=== PATIENT | male | born 1945 | race Caucasian/White ===

== ENCOUNTER 2022-09-07 06:00 | Outpatient (RCR) | payer OTHER, SELFPAY | END 2022-09-21 23:59 | disposition home or self-care (01) | LOC: GPT 06:00 | PROVIDERS: Visit Provider Registered Nurse | DX: G95.9 Disease of spinal cord, unspecified (principal); M50.321 Other cervical disc degeneration at C4-C5 level; M50.30 Other cervical disc degeneration, unspecified cervical region; Z98.1 Arthrodesis status | CPT/HCPCS: 97110; 97140; 97162 ==

== ENCOUNTER 2022-09-22 06:00 | Outpatient (RCR) | payer OTHER, SELFPAY | END 2022-10-19 23:59 | disposition home or self-care (01) | LOC: GPT 06:00 | PROVIDERS: Visit Provider Registered Nurse | DX: G95.9 Disease of spinal cord, unspecified (principal); M50.321 Other cervical disc degeneration at C4-C5 level; M50.30 Other cervical disc degeneration, unspecified cervical region; Z98.1 Arthrodesis status | CPT/HCPCS: 97110; 97112; 97140 ==

== ENCOUNTER 2022-10-20 06:00 | Outpatient (RCR) | payer OTHER, SELFPAY | END 2022-11-19 23:59 | disposition home or self-care (01) | LOC: GPT 06:00 | PROVIDERS: Visit Provider Registered Nurse | DX: G95.9 Disease of spinal cord, unspecified (principal); M50.321 Other cervical disc degeneration at C4-C5 level; M50.30 Other cervical disc degeneration, unspecified cervical region; Z98.1 Arthrodesis status | CPT/HCPCS: 97110; 97112; 97140; 97164; 97530; 97535 ==

== ENCOUNTER → 2023-06-27 10:09 | Outpatient (BNVA) | payer OTHER, SELFPAY | PROVIDERS: PCP Family Medicine; Visit Provider Podiatrist Foot & Ankle Surgery | DX: B35.1 Tinea unguium (principal); I73.9 Peripheral vascular disease, unspecified; G62.9 Polyneuropathy, unspecified | CPT/HCPCS: 11721; 99203 ==

== ENCOUNTER → 2023-09-19 10:05 | Outpatient (BNVA) | payer OTHER, SELFPAY | PROVIDERS: PCP Family Medicine; Visit Provider Podiatrist Foot & Ankle Surgery | DX: B35.1 Tinea unguium (principal); I73.9 Peripheral vascular disease, unspecified; G62.9 Polyneuropathy, unspecified | CPT/HCPCS: 11721 ==

== ENCOUNTER → 2023-09-21 08:34 | Outpatient (BNVA) | payer OTHER, SELFPAY | PROVIDERS: PCP Family Medicine; Referring Provider Family Medicine; Visit Provider Internal Medicine Pulmonary Disease | DX: J96.11 Chronic respiratory failure with hypoxia (principal); J43.2 Centrilobular emphysema; I48.91 Unspecified atrial fibrillation; Z12.2 Encounter for screening for malignant neoplasm of respiratory organs; G47.33 Obstructive sleep apnea (adult) (pediatric); Z87.891 Personal history of nicotine dependence | CPT/HCPCS: 99204 ==

== ENCOUNTER 2023-10-12 09:42 | Outpatient (CLI) | payer OTHER, SELFPAY ==
[2023-10-12 10:05] VITALS: PULSE 82; RESP 18; O2SAT 98
[2023-10-12] MEDS: albuterol 2.5 mg/3 mL Neb INHALATION (10:05)
[2023-10-12 10:09] VITALS: PULSE 85
== END 2023-10-12 09:43 | disposition home or self-care (01) ==
LOC: RT 09:42
PROVIDERS: PCP Family Medicine; Visit Provider Internal Medicine Pulmonary Disease
DX: R06.02 Shortness of breath (principal); R06.00 Dyspnea, unspecified; R05.9 Cough, unspecified; R06.2 Wheezing
CPT/HCPCS: 36415; 80053; 83880; 85025; 94060; 94618; 94726; 94729; J7613

== ENCOUNTER 2023-10-17 09:35 | Outpatient (CLI) | payer OTHER, SELFPAY ==
--- NOTE | 2023-10-17 10:00 | CT_ITS ---
WS: [id number] LDCT LUNG CANCER SCREENING HISTORY: cancer screening TECHNIQUE: Axial imaging performed from the apices to 1 cm below the costophrenic angles. Coronal and sagittal reformats are submitted with axial MIP series. All CT scans at [facility] use at least one of these dose optimization techniques: automated exposure control; mA and/or kV adjustment per patient size (includes targeted exams where dose is matched to clinical indication); or iterativ e reconstruction. DLP: 166.49 mGy.cm DIvol: Mean CTDIvol: 3.90 (mGy) COMPARISON: None available. Diagnostic quality: Satisfactory Lungs: Lung volumes are decreased due to poor inspiration. Crowding of the lung markings at the lung bases and medially. Nodularity surrounded by atelectasis medially in the RIGHT lower lobes. Nodule me asuring 8 mm needs to be further evaluated. No mass. No endobronchial lesions. Heart: Mild cardiomegaly.. Other findings: No pericardial or pleural effusions. Small benign mediastinal and hilar lymph nodes. There is a cystic mass associated with the RIGHT shoulder joint. This is probably a cyst associated w ith internal derangement or labral tear. Cyst is incompletely visualized but measures 2.3 x 5.2 cm. I rregular soft tissue mass in the subareolar location RIGHT breast measures 2.9 x 2.6 cm. IMPRESSION: CT/CT lung screening [id number] LUNG-RADS: 4A-Probably Suspicious FOLLOW UP: 3 Month LDCT OTHER FINDINGS (S MODIFIER): None.
== END 2023-10-17 09:36 | disposition home or self-care (01) ==
LOC: RAD 09:37
PROVIDERS: PCP Family Medicine; Visit Provider Internal Medicine Pulmonary Disease
DX: Z12.2 Encounter for screening for malignant neoplasm of respiratory organs (principal); Z87.891 Personal history of nicotine dependence; R91.1 Solitary pulmonary nodule; J98.11 Atelectasis
CPT/HCPCS: 71271

== ENCOUNTER 2023-11-18 13:22 | Outpatient (CLI) | payer OTHER, SELFPAY ==
--- NOTE | 2023-11-18 14:00 | CT_ITS ---
WS: [id number] Exam: CT chest althea cantor [id number] Date/Time of Exam: 11/18/2023 1:56 PM Reason For Exam: 3 month f/u 8 mm nodule DLP: 754.[address] scans at [facility] use at least one of these dose optimization techniques: automated e xposure control; mA and/or kV adjustment per patient size (includes targeted exams where dose is matc hed to clinical indication); or iterative reconstruction. Comparison 10/17/2023. Nodular pleural thickening again noted medially in the RIGHT lower lobe is stable in appearance. No o ther pulmonary nodules are noted. The lungs are fully expanded and clear. No significant mediastinal or hilar lymphadenopathy noted. The thoracic aorta is normal in caliber. No pleural or pericardial ef fusion identified. Small hiatal hernia. No destructive bone lesions are seen. The chest wall is intac t. Again noted is a soft tissue mass in the RIGHT subareolar area which is unchanged. Again noted is a cystic mass involving the RIGHT shoulder which is unchanged in appearance. IMPRESSION: 1. 8 mm nodular pleural thickening along the medial aspect of the RIGHT lower lobe unchanged in appea shobha. Follow-up CT in 8 to 12 months is recommended for surveillance. 2. No significant lymphadenopathy in the chest. 3. RIGHT breast mass. Further work-up with bilateral mammography recommended. Ultrasound may also be necessary.
== END 2023-11-18 13:23 | disposition home or self-care (01) ==
LOC: RAD 13:24
PROVIDERS: PCP Family Medicine; Visit Provider Internal Medicine Pulmonary Disease
DX: R91.1 Solitary pulmonary nodule (principal); N63.41 Unspecified lump in right breast, subareolar
CPT/HCPCS: 71250

== ENCOUNTER → 2023-11-22 14:44 | Outpatient (BNVA) | payer OTHER, SELFPAY | PROVIDERS: PCP Family Medicine; Visit Provider Internal Medicine Pulmonary Disease | DX: J43.2 Centrilobular emphysema (principal); J96.11 Chronic respiratory failure with hypoxia; I48.91 Unspecified atrial fibrillation; Z12.2 Encounter for screening for malignant neoplasm of respiratory organs; G47.33 Obstructive sleep apnea (adult) (pediatric); N63.0 Unspecified lump in unspecified breast | CPT/HCPCS: 99214 ==

== ENCOUNTER → 2023-11-30 10:20 | Outpatient (BNVA) | payer OTHER, SELFPAY | PROVIDERS: PCP Family Medicine; Visit Provider Podiatrist Foot & Ankle Surgery | DX: B35.1 Tinea unguium (principal); I73.9 Peripheral vascular disease, unspecified; G62.9 Polyneuropathy, unspecified | CPT/HCPCS: 11721 ==

== ENCOUNTER 2024-01-24 09:49 | Outpatient (CLI) | payer OTHER, SELFPAY ==
--- NOTE | 2024-01-24 09:58 | MM_ITS ---
WS: [id number] DIAGNOSTIC BILATERAL DIGITAL BREAST TOMOSYNTHESIS MAMMOGRAPHY WITH CAD RIGHT breast ultrasound, limited HISTORY: LUMP IN R BREAST COMPARISON: 11/18/2023 and 10/17/2023 TECHNIQUE: Bilateral craniocaudad, mediolateral oblique, and mediolateral views are submitted with to mosynthesis and SM. Spot compression RIGHT MLO and CC. Computer aided detection utilized. Breast composition: There are scattered areas of fibroglandular density. Flamelike density posterior to the RIGHT nipple is most consistent with gynecomastia. The area of concern measures 2.5 x 2.4 cm and corresponds to the recent chest CT. No suspicious calcifications. RIGHT breast ultrasound, limited. Hypoechoic dendritic like mass posterior to the RIGHT nipple corresponds to the mammographic and CT f indings. This mass measures 1.4 x 1.3 cm and without increased vascularity. No similar findings on th e LEFT. MM/[place] [id number] IMPRESSION: BI-RADS: 2-Benign FOLLOW UP: See Report Mammographic abnormality corresponds to the CT findings that have been previous ly described. Most consistent with gynecomastia.
== END 2024-01-24 09:50 | disposition home or self-care (01) ==
LOC: RAD 09:49
PROVIDERS: PCP Family Medicine; Visit Provider Family Medicine
DX: N63.41 Unspecified lump in right breast, subareolar (principal)
CPT/HCPCS: 76642; 77062; G0279

== ENCOUNTER → 2024-02-17 09:42 | Outpatient (BNVA) | payer OTHER, SELFPAY | PROVIDERS: PCP Family Medicine; Visit Provider Podiatrist Foot & Ankle Surgery | DX: B35.1 Tinea unguium (principal); I73.9 Peripheral vascular disease, unspecified; G62.9 Polyneuropathy, unspecified | CPT/HCPCS: 11721 ==

== ENCOUNTER 2024-04-13 09:04 | Outpatient (CLI) | payer OTHER, SELFPAY ==
--- NOTE | 2024-04-13 09:10 | CT_ITS ---
WS: [id number] CT chest wo con [id number] HISTORY: FOLLOW UP NODULE TECHNIQUE: Axial imaging performed through the thorax. Coronal and sagittal reformats are submitted. All CT scans at [facility] use at least one of these dose optimization techniques: automated exposure control; mA and/or kV adjustment per patient size (includes targeted exams where dose is mat ched to clinical indication); or iterative reconstruction. CONTRAST: None DLP: 707.12 mGy.cm COMPARISON: 10/17/2023, 11/18/2023 Lungs and central airway: Low lung volumes and dependent changes at the lung bases. Previously descri bed pleural nodule along the medial RIGHT lower lung has essentially resolved. There is a small amoun t of residual scarring but the nodule has resolved. No pneumonia. No additional mass or nodules are i dentified. Pleura: Normal. No pleural effusion. Heart and pericardium: Mild cardiomegaly. Mediastinum and evelyn: Numerous but small mediastinal and hilar lymph nodes. No pathological lymph nod es. Vessels: Mild atherosclerosis aorta. No aneurysm. Pulmonary artery size is equal to the aorta. Chest wall and lower neck: Bilateral gynecomastia, RIGHT greater than LEFT. Bilateral cystic masses a ssociated with the glenohumeral joints. Upper abdomen: Hepatic steatosis. The visualized gallbladder is negative. No adrenal mass. 1.3 cm exo phytic hypodensity from the LEFT kidney. Osseous structures: Advanced thoracic spondylosis. CT/CT chest wo con [id number] IMPRESSION: 1. Previously described pleural-based nodule along the medial RIGHT lower lobe has resolved. No residual mass. Return to annual screening lung exams. 2. Mild emphysema with chronic scarring posteriorly. 3. No mediastinal or hilar adenopathy identified. 4. Mild gynecomastia. 5. Hepatic steatosis.
== END 2024-04-13 09:05 | disposition home or self-care (01) ==
LOC: RAD 09:05
PROVIDERS: PCP Family Medicine; Visit Provider Family Medicine
DX: E86.9 Volume depletion, unspecified (principal); M71.319 Other bursal cyst, unspecified shoulder; K76.0 Fatty (change of) liver, not elsewhere classified; R93.422 Abnormal radiologic findings on diagnostic imaging of left kidney; M47.814 Spondylosis without myelopathy or radiculopathy, thoracic region
CPT/HCPCS: 71250

== ENCOUNTER → 2024-04-27 09:35 | Outpatient (BNVA) | payer OTHER, SELFPAY | PROVIDERS: PCP Family Medicine; Visit Provider Podiatrist Foot & Ankle Surgery | DX: B35.1 Tinea unguium (principal); I73.9 Peripheral vascular disease, unspecified; G62.9 Polyneuropathy, unspecified | CPT/HCPCS: 11721 ==

== ENCOUNTER → 2024-07-18 10:15 | Outpatient (BNVA) | payer OTHER, SELFPAY | PROVIDERS: PCP Family Medicine; Visit Provider Podiatrist Foot & Ankle Surgery | DX: B35.1 Tinea unguium (principal); I73.9 Peripheral vascular disease, unspecified; G62.9 Polyneuropathy, unspecified | CPT/HCPCS: 11721 ==

== ENCOUNTER → 2024-10-09 09:09 | Outpatient (BNVA) | payer OTHER, SELFPAY | PROVIDERS: PCP Family Medicine; Visit Provider Podiatrist Foot & Ankle Surgery | DX: I73.9 Peripheral vascular disease, unspecified (principal); B35.1 Tinea unguium; G62.9 Polyneuropathy, unspecified | CPT/HCPCS: 11721 ==

== ENCOUNTER → 2024-12-11 09:52 | Outpatient (BNVA) | payer OTHER, SELFPAY | PROVIDERS: PCP Family Medicine; Visit Provider Podiatrist Foot & Ankle Surgery | DX: I73.9 Peripheral vascular disease, unspecified (principal); B35.1 Tinea unguium; G62.9 Polyneuropathy, unspecified | CPT/HCPCS: 11721 ==

== ENCOUNTER 2024-12-31 11:42 | Outpatient (CLI) | payer OTHER, SELFPAY ==
[2024-12-31 13:06] LABS: Anion Gap 16.5 (5-19); Blood Urea Nitrogen 34 mg/dL (8-23); Calcium 9.3 mg/dL (8.5-10.5); Carbon Dioxide 28 mmol/L (22-29); Chloride 103 mmol/L (98-107); Glucose 80 mg/dL (65-115); Potassium 4.5 mmol/L (3.5-5.1); Sodium 143 mmol/L (136-145); Uric Acid 9.9 mg/dL (3.4-7.0)
[2024-12-31 13:07] LABS: Calcium 9.3 mg/dL (8.5-10.5)
[2024-12-31 13:09] LABS: Creatinine Urine, Random 27 mg/dL (39-259); Microalbum Creatinine Ratio Ur 37 mg/dL (0-20); Microalbumin Random Urine 1 ug/dL (0-20)
[2024-12-31 13:10] LABS: Parathyroid Hormone 87.5 pg/mL (15-65)
[2024-12-31 13:18] LABS: 25 Hydroxy Vitamin D 52 ng/mL (30-100)
== END 2024-12-31 11:43 | disposition home or self-care (01) ==
LOC: LAB 11:44
PROVIDERS: PCP Family Medicine; Visit Provider Internal Medicine
DX: N18.32 Chronic kidney disease, stage 3b (principal)
CPT/HCPCS: 36415; 80069; 82044; 82306; 82310; 83970; 84550

== ENCOUNTER → 2025-02-12 10:32 | Outpatient (BNVA) | payer OTHER, SELFPAY | PROVIDERS: PCP Family Medicine; Visit Provider Podiatrist Foot & Ankle Surgery | DX: I73.9 Peripheral vascular disease, unspecified (principal); B35.1 Tinea unguium; G62.9 Polyneuropathy, unspecified | CPT/HCPCS: 11721 ==

== ENCOUNTER → 2025-03-06 08:56 | Outpatient (BNVA) | payer OTHER, SELFPAY | PROVIDERS: PCP Family Medicine; Visit Provider Surgery | DX: E61.1 Iron deficiency (principal) | CPT/HCPCS: 99204 ==

== ENCOUNTER 2025-03-21 07:45 | Day surgery (SDC) | payer OTHER, SELFPAY ==
--- NOTE | 2025-03-21 08:10 | PC.NURSE ---
patient states that due to neuropathy he cant wear the recommended hospital socks. they tear my feet up . patient refuses safety socks at this time.
[2025-03-21 08:11] VITALS: BP 123/80; PULSE 82; RESP 16; TEMP 36.2; O2SAT 95; BMI 34.3
--- NOTE | 2025-03-21 08:37 | W.PM.OPSUD ---
Surgery/Procedure H&P Update DATE OF PROCEDURE: March 21, 2025 DATE H&P PERFORMED: 03/06/25 H&P UPDATE INFORMATION: I have reviewed H&P completed within last 30 days, I have examined patient prior to procedure, No changes to prior documentation, Changes to prior documentation as noted here and Risks and benefits of the procedure reviewed PLANNED PROCEDURE: Operation Date: 03/21/25 09:15 Proposed Procedures p EGD with Biopsy [id number] G0105, K92.2 E61.1(Not Applicable) - Cesar Morris MD s Colonoscopy(Not Applicable) - Cesar Morris MD
--- NOTE | 2025-03-21 08:45 | ANES.PREANE2 ---
Pre-Anesthetic Assessment Height/Weight: Height 1.83 m Weight 114.759 kg Temp Pulse Resp BP Pulse Ox O2 Del Method 97.1 F L 82 16 123/80 95 Room Air 03/21/25 08:11 03/21/25 08:11 03/21/25 08:11 03/21/25 08:11 03/21/25 08:11 03/21/25 08:11 Preop Diagnosis: Anemia Operation Date: 03/21/25 09:15 Proposed Procedures p EGD with Biopsy [id number] G0105, K92.2 E61.1(Not Applicable) - Cesra Morris MD s Colonoscopy(Not Applicable) - Cesar Morris MD Was Beta Idania taken within 24 hours: Yes Was Clonidine taken within 24 hours: N/A Last intake: Intake Last Liquid Date 03/20/25 Last Liquid Time 21:00 Last Solid Date 03/19/25 Last Solid Time 20:00 Social No alcohol and No tobacco Exam alert, oriented x 3, clear to auscultation bilaterally and regular rate & rhythm Airway Submandibular: within normal limits Cervical ROM: within normal limits Mallampati: Class II Dentition: false History/ROS No significant history except as noted and No significant complaints Pulmonary Sleep Apnea CV/HEM Atrial Fibrillation and Congestive Heart Failure None reported Hepatic None reported GI None reported Metabolic None reported Musc/skel None reported Neuropsych None reported Anesthetic Plan ASA status: 3 Anesthesia: Anesthesia Evaluation and MAC Risk of > 500 ml blood loss (7ml/kg in children): No Medications/Allergies Home Medications ?Medication ?Instructions ?Recorded ?Confirmed ?Last Taken ?Type apixaban 5 mg tablet 5 mg PO BID 06/27/23 03/21/25 03/17/25 History atorvastatin 40 mg tablet 40 mg PO DAILY 06/27/23 03/21/25 03/20/25 History celecoxib 200 mg capsule 200 mg PO DAILY 06/27/23 03/21/25 03/20/25 History cetirizine 10 mg capsule (All Day 10 mg PO DAILY PRN allergies 06/27/23 03/21/25 03/20/25 History Allergy (cetirizine)) cholecalciferol (vitamin D3) 50 50 mcg PO DAILY 06/27/23 03/21/25 03/20/25 History mcg (2,000 unit) capsule cyclosporine 0.05 % eye drops in a 1 drp ophthalmic (eye) Q12H 06/27/23 03/21/25 03/21/25 06:00 History dropperette fluocinonide 0.05 % topical gel 1 applic topical BID 06/27/23 03/21/25 1 Month Ago History ~02/16/25 furosemide 40 mg tablet 40 mg PO DAILY 06/27/23 03/21/25 03/20/25 History levothyroxine 25 mcg capsule 25 mcg PO DAILY 06/27/23 03/21/25 03/20/25 History lisinopril 2.5 mg tablet 2.5 mg PO DAILY 06/27/23 03/21/25 03/21/25 05:30 History methocarbamol 500 mg tablet 500 mg PO TID 06/27/23 03/21/25 03/20/25 History metoprolol succinate 200 mg 200 mg PO DAILY 06/27/23 03/21/25 03/21/25 05:30 History capsule sprinkle, ext. release 24 hr tamsulosin 0.4 mg capsule 0.4 mg PO DAILY 06/27/23 03/21/25 03/20/25 History verapamil 180 mg 24 hr 180 mg PO DAILY 06/27/23 03/21/25 03/20/25 History capsule,extended release Portable oxygen concentrator #1 ea 10/26/23 03/21/25 Unknown Rx tiotropium 2.5 mcg-olodaterol 2.5 2 puff inhalation DAILY #4 grams 11/22/23 03/21/25 03/20/25 Rx mcg/actuation mist for inhalation (Stiolto Respimat) allopurinol 100 mg tablet 100 mg PO DAILY 02/12/25 03/21/25 03/20/25 History polyethylene glycol 3350 17 17 g PO ONCE 5 days #85 grams 03/06/25 03/21/25 03/17/25 Rx gram/dose oral powder (Miralax) Allergies Allergy/AdvReac Type Severity Reaction Status Date / Time codeine Allergy vomit Verified 12/11/24 10:37 Latex, Natural Rubber Allergy rash Verified 12/11/24 10:37 nicotine Allergy infeciton Verified 12/11/24 10:37 pregabalin (From Lyrica) Allergy ALGY-Hives Verified 03/18/25 10:27 gabapentin Allergy Mild nausea Uncoded 12/11/24 10:37 Current Medications Generic Name Dose Route Start Last Admin Trade Name Freq PRN Reason Stop Dose Admin Sodium Chloride 1,000 mls @ 15 mls/hr 03/21/25 07:52 03/21/25 08:30 Sodium Chloride 0.9% IV 03/22/25 07:51 15 mls/hr .Q24H PRN Administration COLONOSCOPY FLUIDS PFSH Anesthesia Medical History Sleep apnea CHF (congestive heart failure) Social History Smoking and tobacco/nicotine status: never used tobacco/nicotine Quit status (tobacco/nicotine): has quit using Year quit tobacco: 1995 Former quit date comment: 1ppd X 30
--- NOTE | 2025-03-21 09:27 | PC.NURSE ---
Cecum time [id number]
[2025-03-21 09:46] VITALS: BP 89/59; PULSE 75; RESP 16; TEMP 36.2; O2SAT 95
[2025-03-21 10:06] VITALS: BP 105/62; PULSE 78; RESP 16; O2SAT 96
== END 2025-03-21 10:22 | disposition home or self-care (01) ==
PROVIDERS: PCP Family Medicine; Visit Provider Surgery
PROC: 0DJ08ZZ Inspection of Upper Intestinal Tract, Via Natural or Artificial Opening Endoscopic (ICD-10-PCS; principal; 2025-03-21 09:15)
PROC: 0DJD8ZZ Inspection of Lower Intestinal Tract, Via Natural or Artificial Opening Endoscopic (ICD-10-PCS; CPT 45378; 2025-03-21 09:15)
DX: D12.2 Benign neoplasm of ascending colon (principal); D12.0 Benign neoplasm of cecum; K62.1 Rectal polyp; I48.91 Unspecified atrial fibrillation; G47.30 Sleep apnea, unspecified; I50.9 Heart failure, unspecified; D50.9 Iron deficiency anemia, unspecified; K44.9 Diaphragmatic hernia without obstruction or gangrene; K29.71 Gastritis, unspecified, with bleeding; K29.81 Duodenitis with bleeding; Z79.01 Long term (current) use of anticoagulants; Z79.899 Other long term (current) drug therapy; Z79.890 Hormone replacement therapy; Z88.5 Allergy status to narcotic agent; Z88.8 Allergy status to other drugs, medicaments and biological substances; Z91.040 Latex allergy status; Z87.891 Personal history of nicotine dependence
CPT/HCPCS: 43239; 45380; 88305; J2704; J7030

== ENCOUNTER → 2025-04-16 10:34 | Outpatient (BNVA) | payer OTHER, SELFPAY | PROVIDERS: PCP Family Medicine; Visit Provider Surgery | DX: Z09 Encounter for follow-up examination after completed treatment for conditions other than malignant neoplasm (principal) | CPT/HCPCS: 99213 ==

== ENCOUNTER → 2025-05-02 08:56 | Outpatient (BNVA) | payer OTHER, SELFPAY | PROVIDERS: PCP Family Medicine; Visit Provider Podiatrist Foot & Ankle Surgery | DX: I73.9 Peripheral vascular disease, unspecified (principal); B35.1 Tinea unguium; G62.9 Polyneuropathy, unspecified | CPT/HCPCS: 11721 ==

== ENCOUNTER → 2025-07-10 10:57 | Outpatient (BNVA) | payer OTHER, SELFPAY | PROVIDERS: PCP Family Medicine; Visit Provider Podiatrist Foot & Ankle Surgery | DX: I73.9 Peripheral vascular disease, unspecified (principal); B35.1 Tinea unguium; G62.9 Polyneuropathy, unspecified | CPT/HCPCS: 11721 ==

== ENCOUNTER 2025-08-05 12:34 | Outpatient (CLI) | payer OTHER, SELFPAY ==
--- NOTE | 2025-08-05 12:39 | US_ITS ---
WS: [id number] RENAL ULTRASOUND HISTORY: CHRONIC KIDNEY DISEASE COMPARISON: 04/13/2024 TECHNIQUE: 2-D and color Doppler imaging of the kidney submitted. Right kidney: 9.6 cm x 5.0 cm x 4.9 cm. Cortex: 1.1 cm Normal size kidney. Several cysts are identified. The largest from the mid kidney measures 2.1 x 2.2 x 1.8 cm. Similar size from the superior pole measures 2.2 x 2.1 x 1.8 cm. No solid mass or obstruction. Left kidney: 10.3 cm x 5.2 cm x 5.9 cm. Cortex: 1.1 cm Normal size kidney. The exophytic mass seen on the prior CT is very difficult to visualize due to patient's body habitus. Hypoechoic mass measures 2.1 x 1.7 x 1.7 cm in the mid kidney. Cannot be further characterized. Aorta: Normal. Urinary Bladder: Minimally distended. US/US renal BI* [id number] IMPRESSION: 1. Indeterminate mass from the mid LEFT kidney measures 2.1 x 1.7 x 1.7 cm. Ca nnot be further characterized due to patient's body habitus. Consider follow-up renal mass CT protocol which includes pre and post IV contrast imaging. 2. RIGHT renal cysts.
== END 2025-08-05 12:35 | disposition home or self-care (01) ==
LOC: RAD 12:35
PROVIDERS: PCP Family Medicine Geriatric Medicine; Visit Provider Nurse Practitioner Family
DX: N18.32 Chronic kidney disease, stage 3b (principal); N28.1 Cyst of kidney, acquired
CPT/HCPCS: 76770

== ENCOUNTER → 2025-08-12 10:13 | Outpatient (BNVA) | payer OTHER, SELFPAY | PROVIDERS: PCP Family Medicine Geriatric Medicine; Referring Provider Family Medicine Geriatric Medicine; Visit Provider Internal Medicine Rheumatology | DX: M81.0 Age-related osteoporosis without current pathological fracture (principal); Z79.899 Other long term (current) drug therapy; M17.12 Unilateral primary osteoarthritis, left knee; M25.762 Osteophyte, left knee; M22.2X2 Patellofemoral disorders, left knee; M17.11 Unilateral primary osteoarthritis, right knee; M25.861 Other specified joint disorders, right knee; M19.042 Primary osteoarthritis, left hand; M25.842 Other specified joint disorders, left hand; M19.041 Primary osteoarthritis, right hand; M19.071 Primary osteoarthritis, right ankle and foot; M19.072 Primary osteoarthritis, left ankle and foot; L40.50 Arthropathic psoriasis, unspecified; L40.0 Psoriasis vulgaris; Z71.85 Encounter for immunization safety counseling; Z79.1 Long term (current) use of non-steroidal anti-inflammatories (NSAID) | CPT/HCPCS: 73130; 73562; 73630; 80076; 82306; 82565; 83520; 85025; 85651; 86140; 86200; 86431; 86480; 86704; 86803; 87340; 99204 ==